=== PATIENT | female | born 1965 | race Hispanic/Latino ===

== ENCOUNTER 2016-08-17 16:33 | Emergency (ER) | payer OTHER | END 2016-08-17 19:45 | disposition left against medical advice (07) | LOC: C.ER 16:33 | DX: S71.151A Open bite, right thigh, initial encounter (principal); W54.0XXA Bitten by dog, initial encounter; Z02.9 Encounter for administrative examinations, unspecified ==

== ENCOUNTER 2016-09-19 10:02 | Observation (INO) | payer OTHER ==
--- NOTE | 2016-09-19 11:12 | C.PDOC ---
History Of Present Illness 50 y/o female with dyslipidemia c/o left breast pain that she can't quite describe that started after waking this morning. Pain is worse with movement and breathing. pt does not feel short of breath. denies chest pain. denies any recent surgery or prolonged immobilization. no cough, fever or chills. no prior similar episodes. pt had normal mammogram one week ago. Time Seen by Provider: 09/19/16 11:00 Chief Complaint (Nursing): Breast Problem History Per: Patient History/Exam Limitations: no limitations Onset/Duration Of Symptoms: Hrs (5) Current Symptoms Are (Timing): Still Present Severity: Moderate Recent travel outside of the [place]: No Past Medical History Reviewed: Historical Data, Nursing Documentation, Vital Signs Vital Signs: Last Vital Signs Temp 97.8 F 09/19/16 15:58 Pulse 70 09/19/16 15:58 Resp 18 09/19/16 15:58 BP 137/90 09/19/16 15:58 Pulse Ox 96 09/19/16 21:38 - Medical History PMH: Hypercholesterolemia Denies: Chronic Kidney Disease Surgical History: No Surg Hx Family History: States: Unknown Family Hx - Social History Hx Tobacco Use: Yes Hx Alcohol Use: Yes Hx Substance Use: No - Immunization History Hx Tetanus Toxoid Vaccination: No Hx Influenza Vaccination: No Hx Pneumococcal Vaccination: No Review Of Systems Constitutional: Negative for: Fever, Chills Cardiovascular: Positive for: Chest Pain (left breast pain). Negative for: Palpitations, Edema Respiratory: Negative for: Cough, Shortness of Breath Gastrointestinal: Negative for: Nausea, Vomiting, Abdominal Pain Musculoskeletal: Negative for: Neck Pain, Shoulder Pain Skin: Negative for: Rash Neurological: Negative for: Weakness, Numbness Physical Exam - Physical Exam Appears: Non-toxic, Other (appears very uncomfortable) Skin: Warm, Dry Head: Atraumatic, Normacephalic Neck: Normal ROM Chest: Symmetrical, No Deformity, No Tenderness, Other (bilateral breasts non tender to palpation, no erythema, swelling or warmth, no masses palpated) Cardiovascular: Rhythm Regular, No Murmur Respiratory: Normal Breath Sounds, No Rales, No Rhonchi, Stridor, No Wheezing Gastrointestinal/Abdominal: Bowel Sounds, Soft, No Tenderness Extremity: Normal ROM, No Tenderness, No Pedal Edema, No Calf Tenderness Pulses: Left Dorsalis Pedis: Normal, Right Dorsalis Pedis: Normal ED Course And Treatment - Laboratory Results Result Diagrams: 09/19/16 11:29 09/19/16 11:29 O2 Sat by Pulse Oximetry: 96 Medical Decision Making Medical Decision Makin50 y/o female with left breast pain worse with movement and breathing; consider mi, pe, ptx, pna. will get cxr, ekg, labs, give analgesics and re-eval. 12:11 pt more comfortable after toradol; ce neg. d-dimer slightly elevated, will get cta chest to r/o pe. 335 pm pt with neg cta chest for pe, 2 sets neg ce. no ptx or infiltrate on cxr/ct. will d/c home with pmd f/u ED OBSERVATION Discharge: Yes Date of observation admission: 09/19/16 Time of observation admission: 12:16 - Observation admission statement Patient is being placed in observation because:: for cta chest / r/o pe - Goals of Observation Goals of observation are:: pt to get cta chest pe protocol - Progress Note Progress Note: 09/19/16 15:36 pt with neg ce, neg cta for pe, d/c home Disposition - Disposition Disposition: HOME/ ROUTINE Disposition Time: 03:35 Condition: STABLE - Clinical Impression Clinical Impression: Chest pain
[2016-09-19 11:34] LABS: BASO % 0.5 % (0.0-2.0); EOS # 0.1 K/uL (0.0-0.7); EOS % 1.6 % (0.0-4.0); HEMATOCRIT 36.5 % (34.0-47.0); LYMPH # 1.7 K/uL (1.0-4.3); LYMPH % 24.2 % (20.0-40.0); MEAN CELL VOLUME 98.5 fL (81.0-99.0); MEAN CORPUSCULAR HEMOGLOBIN 32.9 pg (27.0-31.0); MEAN CORPUSCULAR HGB CONC 33.4 g/dL (33.0-37.0); MEAN PLATELET VOLUME 8.6 fL (7.2-11.7); MONO # 0.4 K/uL (0.0-0.8); MONO % 5.1 % (0.0-10.0); NRBC % 0.1 % (0.0-2.0); RED CELL DISTRIBUTION WIDTH 12.7 % (11.5-14.5); WHITE BLOOD COUNT 7.2 K/uL (4.8-10.8)
[2016-09-19 11:43] LABS: CHLORIDE 109 mmol/L (98-107); POTASSIUM 3.8 mmol/L (3.6-5.2); SODIUM 146 mmol/L (132-148)
[2016-09-19 11:45] LABS: GFR AFRICAN-AMERICAN > 60
[2016-09-19 11:46] LABS: ALB/GLOB RATIO 1.6 (1.0-2.1); ALKALINE PHOSPHATASE 67 U/L (38-126); ALT/SGPT 49 U/L (9-52); AST/SGOT 49 U/L (14-36); BILIRUBIN,TOTAL 0.7 mg/dL (0.2-1.3); BLOOD UREA NITROGEN 11 mg/dL (7-17); CALCIUM 9.1 mg/dl (8.6-10.4); CARBON DIOXIDE 25 mmol/L (22-30); GLUCOSE,RANDOM 91 mg/dL (65-105)
--- NOTE | 2016-09-19 12:04 | RAD ---
HISTORY: chest pain COMPARISON: No prior. TECHNIQUE: Chest PA and lateral FINDINGS: LUNGS: Diffuse increased interstitial lung markings. Few scattered upper lobe granulomatous changes. Nodular density projecting over the medial left upper lung zone may represent productive change at the end of the 1st left rib. Bibasilar breast and nipple shadows. No gross focal infiltrate or effusion. PLEURA: No significant pleural effusion identified. No pneumothorax apparent. CARDIOVASCULAR: Normal. OSSEOUS STRUCTURES: Degenerative changes in the spine. VISUALIZED UPPER ABDOMEN: Normal. OTHER FINDINGS: None. IMPRESSION: Diffuse increased interstitial lung markings. Few scattered upper lobe granulomatous changes. Nodular density projecting over the medial left upper lung zone may represent productive change at the end of the 1st left rib. Bibasilar breast and nipple shadows. No gross focal infiltrate or effusion.
[2016-09-19] MEDS ORDERED: Iodixanol 320 mg/ml 150 ml Bottle IV ONE (13:06)
--- NOTE | 2016-09-19 14:23 | CT ---
PROCEDURE: CT Chest with contrast (Pulmonary Angiogram) HISTORY: left cp with breathing, elevated ddimer COMPARISON: None available. TECHNIQUE: Axial computed tomography images were obtained of the chest in the pulmonary arterial phase of enhancement. Coronal and sagittal reformatted images were created and reviewed. Intravenous contrast dose: 100 visit opaque Radiation dose: Total exam DLP = 315 mGy-cm. This CT exam was performed using one or more of the following dose reduction techniques: Automated exposure control, adjustment of the mA and/or kV according to patient size, and/or use of iterative reconstruction technique. FINDINGS: PULMONARY ARTERIES: Unremarkable. No pulmonary embolism. AORTA: No acute findings. No thoracic aortic aneurysm. LUNGS: Unremarkable. No nodule, mass or pulmonary consolidation. PLEURAL SPACES: Unremarkable. No effusion or pneuomothorax. HEART: Unremarkable. No cardiomegaly. No significant pericardial effusion. LYMPH NODES: No lymphadenopathy. BONES, CHEST WALL: Unremarkable. No fracture or destructive lesion OTHER FINDINGS: Status post bilateral breast augmentation. IMPRESSION: Unremarkable CT pulmonary angiogram. No pulmonary embolus.
[2016-09-19 16:00] VITALS: BP 137/90; PULSE 70; RESP 18; TEMP 97.8
[2016-09-19 21:38] VITALS: O2SAT 96
--- NOTE | 2016-09-23 15:23 | CARD ---
APPROVED REPORT EKG Measurement Heart [id number] <Conclusion> Normal sinus rhythm Normal ECG
--- NOTE | 2016-09-23 15:24 | CARD ---
APPROVED REPORT EKG Measurement Heart [id number] ME [id number]-25 [id number] <Conclusion> Normal sinus rhythm Nonspecific ST and T wave abnormality Abnormal ECG
== END 2016-09-19 16:00 | disposition home or self-care (01) ==
LOC: C.ER 10:02 → C.9OBSV 12:15
PROVIDERS: ADMIT Emergency Medicine; ATTEND Emergency Medicine
DX: R07.89 Other chest pain (principal); E78.00 Pure hypercholesterolemia, unspecified
CPT/HCPCS: 71020; 71275; 80053; 84484; 85025; 85378; 93005; 96374; 99284; G0378; J1885; Q9965